=== PATIENT | male | born 1955 | race Caucasian/White ===

== ENCOUNTER 2020-07-19 23:39 | Emergency (ER) | payer MEDICARE, OTHER | END 2020-07-20 02:22 | disposition short-term general hospital (02) | LOC: ED 23:39 | DX: S12.501A Unspecified nondisplaced fracture of sixth cervical vertebra, initial encounter for closed fracture (principal); G83.9 Paralytic syndrome, unspecified; W01.198A Fall on same level from slipping, tripping and stumbling with subsequent striking against other object, initial encounter | CPT/HCPCS: 51702; 70450; 71045; 72125; 80053; 81001; 82150; 82550; 83605; 83690; 85025; 86850; 86900; 86901; 90471; 90715; 99285-25; G0480; J1170; J2405 ==